=== PATIENT | male | born 1960 | race Caucasian/White ===

== ENCOUNTER → 2016-07-30 | Outpatient (CLI) | payer BC, OTHER | LOC: RAD 06:59 | PROVIDERS: ATTEND Student in an Organized Health Care Education/Training Program | DX: M75.01 Adhesive capsulitis of right shoulder (principal) ==

== ENCOUNTER 2016-08-21 10:51 | Day surgery (SDC) | payer BC ==
[2016-08-14 13:03] LABS: ABSOLUTE BASOPHILS # (AUTO) 0.1 10^3/uL (0.0-0.2); ABSOLUTE EOSINOPHILS # (AUTO) 0.2 10^3/uL (0.0-0.6); ABSOLUTE LYMPHOCYTES (AUTO) 1.7 10^3/uL (0.5-4.7); ABSOLUTE MONOCYTES (AUTO) 0.4 10^3/uL (0.1-1.4); ABSOLUTE NEUT (AUTO) 2.4 10^3/uL (1.7-8.2); BASOPHILS % (AUTO) 1.7 % (0-2); EOSINOPHILS % (AUTO) 3.6 % (0-6); HEMATOCRIT 43.5 % (37.9-51.0); HEMOGLOBIN 14.8 g/dL (13.5-17.0); HGB HCT DIFFERENCE 0.9; MEAN CORPUSCULAR HEMOGLOBIN 31.2 pg (27.0-33.4); MEAN CORPUSCULAR HGB CONC 34.1 g/dL (32.0-36.0); MEAN CORPUSCULAR VOLUME 92 fl (80-97); MONOCYTES % (AUTO) 8.1 % (3-13); RED BLOOD COUNT 4.75 10^6/uL (4.35-5.55); RED CELL DISTRIBUTION WIDTH 14.1 % (11.5-14.0); SEGMENTED NEUTROPHILS % (AUTO) 50.6 % (42-78); WHITE BLOOD COUNT 4.7 10^3/uL (4.0-10.5)
[2016-08-14 13:18] LABS: APPEARANCE,URINE SLIGHTLY-CLOUDY; BILIRUBIN,URINE NEGATIVE (NEGATIVE); CALCIUM OXALATE CRYSTALS,URINE TOO NUMEROUS TO CNT /HPF; GLUCOSE, URINE NEGATIVE (NEGATIVE); KETONES,URINE NEGATIVE (NEGATIVE); LEUKOCYTE ESTERASE,URINE NEGATIVE (NEGATIVE); NITRITE,URINE NEGATIVE (NEGATIVE); PROTEIN,URINE NEGATIVE (NEGATIVE); URINE SPECIFIC GRAVITY 1.026; UROBILINOGEN,URINE NEGATIVE mg/dL (<2.0)
[2016-08-14 13:33] LABS: ANION GAP 9 (5-19); BLOOD UREA NITROGEN 18 mg/dL (7-20); CALCIUM 9.6 mg/dL (8.4-10.2); CARBON DIOXIDE 31 mmol/L (22-30); CHLORIDE 101 mmol/L (98-107); CREATININE RESULT 0.83 mg/dL (0.52-1.25); GLUCOSE 72 mg/dL (75-110); POTASSIUM 4.6 mmol/L (3.6-5.0); SODIUM 141.4 mmol/L (137-145)
--- NOTE | 2016-08-14 13:54 | RADIOLOGY REPORT (SQ) ---
EXAM DESCRIPTION: CHEST PA/LATERAL COMPLETED DATE/TIME: 08/14/2016 1:06 pm REASON FOR STUDY: PRE-OP COMPARISON: Chest films 03/10/2015, 01/12/2014 EXAM PARAMETERS: NUMBER OF VIEWS: two views TECHNIQUE: Digital Frontal and Lateral radiographic views of the chest acquired. RADIATION DOSE: NA LIMITATIONS: none FINDINGS: LUNGS AND PLEURA: No opacities, masses or pneumothorax. No pleural effusion. MEDIASTINUM AND HILAR STRUCTURES: No masses or contour abnormalities. HEART AND VASCULAR STRUCTURES: Heart normal size. No evidence for failure. BONES: No acute findings. HARDWARE: None in the chest. OTHER: No other significant finding. IMPRESSION: NO SIGNIFICANT RADIOGRAPHIC FINDING IN THE CHEST. TECHNICAL DOCUMENTATION: JOB ID: [id number] [employer]- All Rights Reserved
--- NOTE | 2016-08-14 20:33 | EKG REPORT ---
SEVERITY:- ABNORMAL ECG - SINUS RHYTHM RBBB AND LAFB : Confirmed by: Chris Das MD 14-Aug-2016 20:32:23
[~2016-08-21 10:51] MED LIST: BUPIVACAINE HCL 0.5 % INJ/PF 30 ML SDV ONE; CEFAZOLIN 2 GM/D5W RTU 2 GM/50 ML RTUPB IV PRN; EPINEPHRINE INJ/PF 1 MG/1 ML AMPULE ONE; LACTATED RINGERS 1000 ML IV PRN; LIDOCAINE 0.5% INJ-PF (5 MG/ML) 50 ML SDV SUBCUT PRN
[2016-08-21] MEDS ORDERED: FENTANYL CITRATE INJ/PF 250 MCG/5 ML AMPULE ONE ×2 (12:58)
[2016-08-21] MEDS ORDERED: PROPOFOL INJ 200 MG/20 ML VIAL IV ONE (12:59)
[2016-08-21] MEDS ORDERED: ACETAMINOPHEN 100 ML IV ONE (12:59)
[2016-08-21] MEDS ORDERED: MIDAZOLAM 2 MG/2 ML INJ ONE (12:59)
[2016-08-21] MEDS ORDERED: MORPHINE SULFATE 10 MG/ML INJ ONE (12:59)
[2016-08-21] MEDS ORDERED: MORPHINE SULFATE 10 MG/ML INJ IV PRN (14:31)
[2016-08-21] MEDS ORDERED: DIPHENHYDRAMINE HCL 50 MG/ML VIAL IV PRN (14:31)
[2016-08-21] MEDS ORDERED: PROMETHAZINE HCL INJ 25 MG/1 ML VIAL IV PRN ×2 (14:31)
[2016-08-21] MEDS ORDERED: FENTANYL CITRATE INJ/PF 100 MCG/2 ML AMPUL IV PRN ×3 (14:31)
[2016-08-21] MEDS ORDERED: MEPERIDINE HCL/PF INJ 25 MG/1 ML DISP.SYRIN IV PRN (14:31)
[2016-08-21] MEDS ORDERED: OXYCODONE-ACETAMINOPHEN 5-325 MG TABLET PO PRN ×2 (14:31)
[2016-08-21] MEDS ORDERED: SUCCINYLCHOLINE CHLORIDE INJ 200 MG/10 ML VIAL ONE (15:25)
[2016-08-21] MEDS ORDERED: ROCURONIUM BROMIDE INJ 50 MG/5 ML VIAL IV ONE (15:25)
[2016-08-21] MEDS ORDERED: ONDANSETRON HCL INJ/PF 4 MG/2 ML SDV ONE (15:25)
[2016-08-21] MEDS ORDERED: PHENYLEPHRINE HCL INJ/PF 10 MG/1 ML SDV ONE (15:25)
[2016-08-21] MEDS ORDERED: LIDOCAINE 2% INJ-PF (20 MG/ML) 10 ML AMPUL ONE (15:25)
[2016-08-21] MEDS ORDERED: METOCLOPRAMIDE HCL INJ/PF 10 MG/2 ML SDV ONE (15:25)
[2016-08-21] MEDS ORDERED: GLYCOPYRROLATE INJ 0.4 MG/2 ML VIAL ONE (15:25)
[2016-08-21] MEDS ORDERED: NEOSTIGMINE METHYLSULFATE 10 MG/10 ML VIAL ONE (15:25)
[2016-08-21] MEDS: HYDROMORPHONE HCL INJ/PF 2 MG/ML AMPULE ONE ×2 (16:15→17:56)
--- NOTE | 2016-08-21 17:39 | PDOC DISCHARGE SUMMARY ---
Discharge Summary (SDC) - Discharge Final Diagnosis: Right shoulder arthroscopic rotator cuff repair and distal clavicle excision Date of Surgery: 08/21/16 Discharge Date: 08/21/16 Condition: Good Treatment or Instructions: Patient is instructed to follow up in 10-14 days. Patient instructed to remove dressing in 4 days then can shower and apply Band- Aids as needed. Patient to wear sling for comfort but okay to remove for shower and pendulum exercises. Pendulum exercises are instructed to be done 3 times a day ideally with breakfast, lunch, dinners and showers. Patient instructed to call if there is any signs of redness or drainage fevers or chills. Referrals: GREYSON PATEL DO [Primary Care Provider] - Discharge Diet: As Tolerated Respiratory Treatments at Home: Deep Breathing/Coughing Home Care Assistance: None Needed Report the Following to Your Physician Immediately: Shortness of Breath, Increase in Pain, Yellow Skin, Fever over 101 Degrees, Unusual Bleeding, Redness , Swelling, Warmth, Increased Soreness, Drainage-Yellow, Drainage-[place], Drainage -Green, Drainage-Foul Smelling
--- NOTE | 2016-08-21 17:43 | Operative Report ---
Operative Report DATE OF SURGERY: 08/21/16 PREOPERATIVE DIAGNOSIS: Right high-grade rotator cuff tear and AC joint arthropathy POSTOPERATIVE DIAGNOSIS: Same OPERATION: Right shoulder arthroscopic rotator cuff repair and distal clavicle excision SURGEON: JACKIE VILLEDA ANESTHESIA: GA TISSUE REMOVED OR ALTERED: None COMPLICATIONS: None ESTIMATED BLOOD LOSS: 20 mL INTRAOPERATIVE FINDINGS: As above PROCEDURE: IMPLANTS: Arthrex 4.75 bio composite swivel locks 2 DESCRIPTION OF PROCEDURE: Patient was brought to the operating room placed in supine position. After successfully induced and intubated the patient patient was placed in the beachchair position the head and endotracheal tube was secured appropriately. The right shoulder was prepped and draped in a normal surgical fashion. A timeout was done identifying the right shoulder as the correct site. After inflating the glenohumeral joint with sterile saline solution an 11 blade was used to establish the posterior portal. The arthroscope was introduced and return of fluid was seen showing that we successfully penetrated the glenohumeral joint. With the use of spinal needle we're able to sonya the anterior portal and using an 11 blade able to establish anterior portal. A cannula was introduced through the anterior portal. At this point diagnostic scope was done. As seen on the MRI patient had A high- grade rotator cuff tear. The biceps anchor and labrum was intact. Glenohumeral joint was intact. A lateral portal was established 11 blade. 4.0mm shaver was introduced and was used to prepare the tear and the subchondral bone for preparation of anchor placement. Once I was satisfied with the preparation I then redirected my scope into the subacromial space. Formal bursectomy was done. Able to visualize a pair and was able to clean the edges further. A percutaneous incision was then just adjacent to the acromion on the lateral aspect. Through this percutaneous hole the awl was used to prepare the hole for an anchor. [place] was percutaneously sent flushed with the bone just adjacent to the articular margin. Sutures were passed through the anterior portal for proper suture management. With the use of the scorpion and I proceeded to pass the sutures through the rotator cuff tendon with proper suture management was able to pass the strands either through percutaneous hole or the anterior portal. Once I was satisfied with placement of all my sutures I then proceeded to do my arthroscopic knots. At this point the strands were used to do our lateral row. Bicomposite anchor was used and the lateral aspect of the humerus was then cleaned off with a shaver and electrocautery. Once identified once I was replacement I proceeded to use my awl to do my hole. This this point the sutures were adequately tensioned and subluxed for inserted and secured securing and increasing the footprint of the rotator cuff repair. Remaining strands were cut with the arthroscopic cutter. At this point I turned my attention to the AC joint where I was able to delineate the clavicle and acromion. To my anterior portal was able to use the radio frequency ablative to expose the AC joint. Through the anterior portal I was able to and use a 5.5mm bur to do my resection of the distal clavicle. Final pictures were taking showing my repair and my distal clavicle excision. At this point fluid from the shoulder was removed camera and instruments were all removed. I proceeded to close my portal sites with 3-0 nylon. Xeroform 4 x 4 dressing followed by ABDs pads and Medipore tape was applied. Patient was placed in a sling and returned to supine position where he was successfully extubated and taken to PACU in stable condition.
[2016-08-21 19:25] VITALS: BP 144/89
== END 2016-08-21 19:15 | disposition home or self-care (01) ==
LOC: OROUT 10:51
PROVIDERS: ATTEND Orthopaedic Surgery
PROC: 0PB94ZZ Excision of Right Clavicle, Percutaneous Endoscopic Approach (ICD-10-PCS; 2016-08-21)
PROC: 0LM14ZZ Reattachment of Right Shoulder Tendon, Percutaneous Endoscopic Approach (ICD-10-PCS; principal; 2016-08-21 13:00)
DX: M75.101 Unspecified rotator cuff tear or rupture of right shoulder, not specified as traumatic (principal); M19.011 Primary osteoarthritis, right shoulder; M11.20 Other chondrocalcinosis, unspecified site; M25.511 Pain in right shoulder; Z79.899 Other long term (current) drug therapy; Z79.1 Long term (current) use of non-steroidal anti-inflammatories (NSAID); Z79.891 Long term (current) use of opiate analgesic; E78.00 Pure hypercholesterolemia, unspecified; M19.90 Unspecified osteoarthritis, unspecified site; Z87.891 Personal history of nicotine dependence
CPT/HCPCS: 93005; 36415; 85025; 80048; 81001; 71020; 93010; 29827; 29824; C1713; J2250; J3490 ×2; J0171; J3010; J2765; J2270; J1170; J2370; J0330; J2405; J2704; J0690; J0131; 1610; 1630

== ENCOUNTER 2016-08-22 15:27 | Emergency (ER) | payer BC, OTHER ==
[2016-08-22] MEDS ORDERED: LIDOCAINE 2% URO-JET 5 ML KIT MM ONE (17:23)
[2016-08-22 18:00] LABS: APPEARANCE,URINE CLEAR; BILIRUBIN,URINE NEGATIVE (NEGATIVE); GLUCOSE, URINE NEGATIVE (NEGATIVE); KETONES,URINE TRACE mg/dL (NEGATIVE); LEUKOCYTE ESTERASE,URINE NEGATIVE (NEGATIVE); NITRITE,URINE POSITIVE (NEGATIVE); PROTEIN,URINE NEGATIVE (NEGATIVE); URINE SPECIFIC GRAVITY 1.004
[2016-08-22 18:27] LABS: ABSOLUTE MONOCYTES (AUTO) 0.7 10^3/uL (0.1-1.4); ABSOLUTE NEUT (AUTO) 8.6 10^3/uL (1.7-8.2); BASOPHILS % (AUTO) 0.3 % (0-2); EOSINOPHILS % (AUTO) 0.1 % (0-6); HEMATOCRIT 42.9 % (37.9-51.0); HEMOGLOBIN 14.6 g/dL (13.5-17.0); HGB HCT DIFFERENCE 0.9; LYMPHOCYTES % (AUTO) 9.3 % (13-45); MEAN CORPUSCULAR HGB CONC 33.9 g/dL (32.0-36.0); MEAN CORPUSCULAR VOLUME 92 fl (80-97); MONOCYTES % (AUTO) 6.4 % (3-13); RED BLOOD COUNT 4.69 10^6/uL (4.35-5.55); SEGMENTED NEUTROPHILS % (AUTO) 83.9 % (42-78); WHITE BLOOD COUNT 10.2 10^3/uL (4.0-10.5)
--- NOTE | 2016-08-22 18:38 | ER Document Report ---
HPI - HPI Pain Level: 3 Context: Patient is a 56-year-old male status post right rotator cuff repair yesterday August 21, 2016 who presents with urinary urgency and frequency that began this morning. Patient states that he has associated burning but no hematuria, pyuria. Pt states that he feels like he cannot get all of the urine out of his bladder and he has a lot of bladder pressure. He has been urinating small amounts every 1-2minutes since this morning. Pt did take AZO otc with no relief. He also took 2 of his pain pills prior to coming into the ED. Pt states that he will feel warm on occasion as well but denies any fever. Denies any URI, sore throat, cough, sob, dyspnea, cp, palp, syncope, abd pain, n/v/d/c , or rash. His BM's are regular along with a normal intake of fluids/food. - ROS Notes: REVIEW OF SYSTEMS: CONSTITUTIONAL : Denies fever, chills, or sweats. Denies recent illness. EENT: Denies eye, ear, throat, or mouth pain or symptoms. Denies nasal or sinus congestion or discharge. Denies throat, tongue, or mouth swelling or difficulty swallowing. CARDIOVASCULAR: Denies chest pain. Denies palpitations or racing or irregular heart beat. Denies ankle edema. RESPIRATORY: Denies cough, cold, or chest congestion. Denies shortness of breath, difficulty breathing, or wheezing. GASTROINTESTINAL: Denies abdominal pain or distention. Denies nausea, vomiting , or diarrhea. Denies blood in vomitus, stools, or per rectum. Denies black, tarry stools. Denies constipation. + suprapubic pressure. GENITOURINARY: see hpi. MUSCULOSKELETAL: see hpi. SKIN: Denies rash, lesions or sores. HEMATOLOGIC : Denies easy bruising or bleeding. NEUROLOGICAL: Denies confusion or altered mental status. Denies passing out or loss of consciousness. Denies dizziness or lightheadedness. Denies headache. Denies weakness or paralysis or loss of use of either side. Denies problems with gait or speech. Denies sensory loss, numbness, or tingling. ALL OTHER SYSTEMS REVIEWED AND NEGATIVE. Dictation was performed using [employer]ogi voice recognition software - DERM Skin Color: Normal Past Medical History - Social History Smoking Status: Never Smoker Family History: Reviewed & Not Pertinent Patient has suicidal ideation: No Patient has homicidal ideation: No - Past Medical History Cardiac Medical History: Reports: Hx Hypercholesterolemia Denies: Hx Coronary Artery Disease, Hx Heart Attack, Hx Hypertension Pulmonary Medical History: Denies: Hx Asthma, Hx Bronchitis, Hx COPD, Hx Pneumonia Neurological Medical History: Denies: Hx Cerebrovascular Accident, Hx Seizures Renal/ Medical History: Reports: Hx Kidney Stones. Denies: Hx Peritoneal Dialysis Musculoskeltal Medical History: Reports Hx Arthritis - R SHOULDER, R FEMUR, Reports Hx Gout Psychiatric Medical History: Reports: Hx Anxiety, Hx Depression Past Surgical History: Reports: Hx Orthopedic Surgery - Knee and toe surgery, Hx Tonsillectomy - Immunizations Hx Diphtheria, Pertussis, Tetanus Vaccination: Yes Hx Pneumococcal Vaccination: 01/13/14 Vertical Provider Document - CONSTITUTIONAL Notes: PHYSICAL EXAMINATION: GENERAL: Well-appearing, well-nourished and in no acute respiratory distress, but does appear uncomfortable s/p shoulder surgery. LUNGS: Breath sounds clear to auscultation bilaterally and equal. No wheezes rales or rhonchi. HEART: Regular rate and rhythm without murmurs, rubs, gallops. ABDOMEN: Soft, nontender, nondistended abdomen. Able to percuss the bladder just inferior to the umbilicus. No guarding, no rebound. Palpation of the bladder was found to increase urgency sensation described by the patient. No masses appreciated. Normal bowel sounds present. No CVA tenderness bilaterally. Defer JUVENAL to urologist- Pt unwilling to roll to side with shoulder and catheter/bag placement. Extremities: No cyanosis, clubbing, or edema b/l. Peripheral pulses 2+. Capillary refill less than 3 seconds. NEUROLOGICAL: Cranial nerves grossly intact. Normal speech, normal gait. Normal sensory, motor exams PSYCH: Normal mood, normal affect. SKIN: Warm, Dry, normal turgor, no rashes or lesions noted. - INFECTION CONTROL TRAVEL OUTSIDE OF THE [place] IN LAST 30 DAYS: No - RESPIRATORY O2 Sat by Pulse Oximetry: 99 Course - Re-evaluation Re-evalutation: Patient is a 56yo male who presents with urinary retention s/p Rt RC surgical repair yesterday, August 21 2016. Presenting symptoms were urinary urgency and frequency. A dunn was placed which removed 750cc urine from his bladder. Glucose finger stick of 112. His CBC and CMP were unremarkable aside from mild LFT elevation. A U/A did show + nitrates which we will cover with Keflex. UC pending. Pt states that he did have a dunn during the surgery which was removed during recovery. We will be sending him home with a leg bag and recommended consult with Urology and PCM on Wednesday. 08/22/16 18:41 - Vital Signs Vital signs: Temp Pulse Resp BP Pulse Ox 97.5 F 118 H 20 99 08/22/16 15:31 08/22/16 15:31 08/22/16 15:31 08/22/16 15:31 - Laboratory Result Diagrams: 08/22/16 18:12 08/22/16 18:12 Laboratory results interpreted by me: 08/22/16 08/22/16 08/22/16 17:20 17:53 18:12 Seg Neutrophils % 83.9 H Lymphocytes % 9.3 L Absolute Neutrophils 8.6 H POC Glucose 112 H Urine Ketones TRACE H Urine Nitrite POSITIVE H Urine Urobilinogen 2.0 H Discharge - Discharge Clinical Impression: Urinary retention with incomplete bladder emptying UTI (urinary tract infection) Qualifiers: Urinary tract infection type: site unspecified Hematuria presence: without hematuria Qualified Code(s): N39.0 - Urinary tract infection, site not specified Condition: Stable Disposition: HOME, SELF-CARE Instructions: Urinary Anesthetic Agent ([facility]), Urinary Tract Infection ([facility]), Cephalexin ([facility]) Additional Instructions: Maintain fluid intake Take meds as directed Continue direction as per your Orthopedic surgeon for your shoulder Keep catheter placed until consult with Urology F/u: with Urology on Wednesday for recheck F/u: with your PCM on Wednesday-wednesday for recheck If any worsening symptoms (e.g. fever, cp, sob, dyspnea, abdominal pain, blood in urine, Headache) to return to the ED. Prescriptions: Cephalexin Monohydrate [Keflex 500 mg Capsule] 500 mg PO BID #14 capsule
[2016-08-22 18:49] LABS: ALANINE AMINOTRANSFERASE 84 U/L (21-72); ALBUMIN 4.2 g/dL (3.5-5.0); ALKALINE PHOSPHATASE 68 U/L (38-126); ANION GAP 11 (5-19); ASPARTATE AMINO TRANSFERASE 76 U/L (17-59); BILIRUBIN,DIRECT 0.1 mg/dL (0.0-0.4); BILIRUBIN,TOTAL 1.1 mg/dL (0.2-1.3); BLOOD UREA NITROGEN 10 mg/dL (7-20); CALCIUM 9.6 mg/dL (8.4-10.2); CARBON DIOXIDE 29 mmol/L (22-30); CHLORIDE 98 mmol/L (98-107); CREATININE RESULT 0.74 mg/dL (0.52-1.25); GLUCOSE 105 mg/dL (75-110); POTASSIUM 3.6 mmol/L (3.6-5.0); SODIUM 137.6 mmol/L (137-145); TOTAL PROTEIN 7.2 g/dL (6.3-8.2)
[2016-08-22 20:47] VITALS: BP 127/73
== END 2016-08-22 20:55 | disposition home or self-care (01) ==
LOC: ER 15:27
DX: N39.0 Urinary tract infection, site not specified (principal); R33.9 Retention of urine, unspecified; R79.89 Other specified abnormal findings of blood chemistry; Z98.890 Other specified postprocedural states; Z87.442 Personal history of urinary calculi
CPT/HCPCS: 99283; 51701; 51702; 36415; 87086; 82962; 85025; 80053; 81001; J3490

== ENCOUNTER 2016-08-23 15:45 | Emergency (ER) | payer BC ==
--- NOTE | 2016-08-23 17:36 | ER Document Report ---
ED GI/ - General Chief Complaint: Blood in Catheter Stated Complaint: BLEEDING FROM CATHETER/POST SURGERY Time Seen by Provider: 08/23/16 17:23 Mode of Arrival: Ambulatory Information source: Patient TRAVEL OUTSIDE OF THE [place] IN LAST 30 DAYS: No - HPI Patient complains to provider of: Huang catheter problem Onset: This morning Timing/Duration: Sudden Quality of pain: Burning Severity at maximum: Moderate Severity in ED: Moderate Pain Level: 3 Location: Suprapubic Associated symptoms: Hematuria Exacerbated by: Denies Relieved by: Denies Similar symptoms previously: Yes Recently seen / treated by doctor: Yes Notes: 08/23/16 17:30 Angelica is a 56-year-old male who presents to the emergency room complaining of hematuria, he recently had rotator cuff surgery, developed urinary retention afterwards, was seen in this emergency room yesterday and a Huang catheter was placed, which seem to be working quite well until this morning when he noticed blood in the leg bag, and a burning sensation when trying to urinate, he has no history of urinary retention prior to this episode, he does report that he is taking pain medication for the rotator cuff repair, has not been having regular bowel movements but did do two at home enemas with success - Related Data Allergies/Adverse Reactions: No Known Allergies Allergy (Verified 08/23/16 16:27) Past Medical History - General Information source: Patient - Social History Smoking Status: Never Smoker Family History: Reviewed & Not Pertinent Patient has suicidal ideation: No Patient has homicidal ideation: No - Past Medical History Cardiac Medical History: Reports: Hx Hypercholesterolemia Denies: Hx Coronary Artery Disease, Hx Heart Attack, Hx Hypertension Pulmonary Medical History: Denies: Hx Asthma, Hx Bronchitis, Hx COPD, Hx Pneumonia Neurological Medical History: Denies: Hx Cerebrovascular Accident, Hx Seizures Renal/ Medical History: Reports: Hx Kidney Stones. Denies: Hx Peritoneal Dialysis Musculoskeltal Medical History: Reports Hx Arthritis - R SHOULDER, R FEMUR, Reports Hx Gout Psychiatric Medical History: Reports: Hx Anxiety, Hx Depression Past Surgical History: Reports: Hx Orthopedic Surgery - Knee and toe surgery, Hx Tonsillectomy - Immunizations Hx Diphtheria, Pertussis, Tetanus Vaccination: Yes Hx Pneumococcal Vaccination: 01/13/14 Review of Systems - Review of Systems Constitutional: No symptoms reported EENT: No symptoms reported Cardiovascular: No symptoms reported Respiratory: No symptoms reported Gastrointestinal: No symptoms reported Genitourinary: Hematuria Male Genitourinary: No symptoms reported Musculoskeletal: No symptoms reported Skin: No symptoms reported Hematologic/Lymphatic: No symptoms reported Neurological/Psychological: No symptoms reported -: Yes All other systems reviewed and negative Physical Exam - Vital signs Vitals: Temp Pulse Resp BP Pulse Ox 98.2 F 90 18 155/88 H 96 08/23/16 16:28 08/23/16 16:28 08/23/16 16:28 08/23/16 16:28 08/23/16 16:28 - Notes Notes: - General General appearance: Appears well, Alert In distress: None - HEENT Head: Normocephalic, Atraumatic Eyes: Normal Conjunctiva: Normal Extraocular movements intact: Yes Eyelashes: Normal Pupils: PERRL - Respiratory Respiratory status: No respiratory distress - Cardiovascular Rhythm: Regular - Abdominal Inspection: Normal -Genitourinary Catheter in place with leg bag with clear yellow urine, no evidence of hematuria - Back Back: Normal - Extremities General upper extremity: Normal inspection General lower extremity: Normal inspection - Neurological Neuro grossly intact: Yes Orientation: AAOx4 Abran Coma Scale Eye Opening: Spontaneous Abran Coma Scale Verbal: Oriented Cow[place] Coma Scale Motor: Obeys Commands Abran Coma Scale Total: 15 - Psychological Associated symptoms: Normal affect, Normal mood - Skin Skin Temperature: Warm Skin Moisture: Dry Skin Color: Normal Course - Re-evaluation Re-evalutation: 08/23/16 18:10 Patient's bladder was irrigated with 1000 cc of normal saline, and has been clear and without blood, he will be discharged with instructions for follow-up and advised to return if any additional concerns, patient acknowledges understanding and agreement with this plan - Vital Signs Vital signs: Temp Pulse Resp BP Pulse Ox 98.2 F 90 18 155/88 H 96 08/23/16 16:28 08/23/16 16:28 08/23/16 16:28 08/23/16 16:28 08/23/16 16:28 Discharge - Discharge Clinical Impression: Hematuria, Huang catheter in place Condition: Stable Disposition: HOME, SELF-CARE Instructions: Huang Catheter Care ([facility]), Hematuria ([facility]) Additional Instructions: Follow up with your primary care provider in one to 2 days. Return to the emergency room immediately if symptoms worsen or any additional concerns. Prescriptions: Docusate Sodium [Colace 100 mg Capsule] 100 mg PO BID #60 capsule Polyethylene Glycol 3350 [Miralax Powder 17 Gm/Packet] 17 gm PO DAILY #30 powd.pack
[2016-08-23 18:40] VITALS: BP 160/85
== END 2016-08-23 18:36 | disposition home or self-care (01) ==
LOC: ER 15:45
DX: R31.9 Hematuria, unspecified (principal); E78.00 Pure hypercholesterolemia, unspecified; Z87.442 Personal history of urinary calculi
CPT/HCPCS: 99283

== ENCOUNTER 2016-09-04 21:56 | Emergency (ER) | payer BC ==
--- NOTE | 2016-09-04 22:47 | ER Document Report ---
ED General - General Chief Complaint: Urinary Retention Stated Complaint: URINARY ISSUE Time Seen by Provider: 09/04/16 22:21 Mode of Arrival: Ambulatory Information source: Patient, Relative TRAVEL OUTSIDE OF THE [place] IN LAST 30 DAYS: No - HPI Notes: Patient is a pleasant 56-year-old white male presents emergency department with report that he had rotator cuff surgery on 08/21/16 and postoperatively had urinary retention and a Huang catheter was placed, then he returned with mild hematuria which cleared up. He was placed upon Keflex, although a urine culture was negative. The patient had a normal BUN/creatinine of 10/0.74 on 08/22. Patient was seen by urology and had Huang catheter removed 2 days ago when he followed up with urology and since that time he states he has not had adequate ability to urinate that is gotten progressively worse with bladder fullness. He denies any fever, nausea, back pain. Patient was started on Flomax 4 days ago. - Related Data Allergies/Adverse Reactions: No Known Allergies Allergy (Verified 08/23/16 16:27) Past Medical History - General Information source: Patient - Social History Smoking Status: Never Smoker Frequency of alcohol use: None Drug Abuse: None Lives with: Family Family History: Reviewed & Not Pertinent Patient has suicidal ideation: No Patient has homicidal ideation: No - Past Medical History Cardiac Medical History: Reports: Hx Hypercholesterolemia Denies: Hx Coronary Artery Disease, Hx Heart Attack, Hx Hypertension Pulmonary Medical History: Denies: Hx Asthma, Hx Bronchitis, Hx COPD, Hx Pneumonia Neurological Medical History: Denies: Hx Cerebrovascular Accident, Hx Seizures Renal/ Medical History: Reports: Hx Kidney Stones. Denies: Hx Peritoneal Dialysis Musculoskeltal Medical History: Reports Hx Arthritis - R SHOULDER, R FEMUR, Reports Hx Gout Psychiatric Medical History: Reports: Hx Anxiety, Hx Depression Past Surgical History: Reports: Hx Orthopedic Surgery - Knee and toe surgery, Hx Tonsillectomy - Immunizations Hx Diphtheria, Pertussis, Tetanus Vaccination: Yes Hx Pneumococcal Vaccination: 01/13/14 Review of Systems - Review of Systems Notes: REVIEW OF SYSTEMS: CONSTITUTIONAL : Denies fever, chills, or sweats. Denies recent illness. EENT: Denies eye, ear, throat, or mouth pain or symptoms. Denies nasal or sinus congestion or discharge. Denies throat, tongue, or mouth swelling or difficulty swallowing. CARDIOVASCULAR: Denies chest pain. Denies palpitations or racing or irregular heart beat. Denies ankle edema. RESPIRATORY: Denies cough, cold, or chest congestion. Denies shortness of breath, difficulty breathing, or wheezing. GASTROINTESTINAL: Denies nausea, vomiting, or diarrhea. Denies blood in vomitus, stools, or per rectum. Denies black, tarry stools. Patient reported lower abdominal pain that was relieved after Huang catheter placement with removal of 450 cc of clear urine. Patient does report mild constipation, related to being on his narcotic pain meds after surgery. The patient states he is weaning off of these medications currently. GENITOURINARY: Denies blood in urine, or discharge. MUSCULOSKELETAL: Denies back or neck pain or stiffness. Denies joint pain or swelling. SKIN: Denies rash, lesions or sores. HEMATOLOGIC : Denies easy bruising or bleeding. LYMPHATIC: Denies swollen, enlarged glands. NEUROLOGICAL: Denies confusion or altered mental status. Denies passing out or loss of consciousness. Denies dizziness or lightheadedness. Denies headache. Denies weakness or paralysis or loss of use of either side. Denies problems with gait or speech. Denies sensory loss, numbness, or tingling. Denies seizures. PSYCHIATRIC: Denies anxiety or stress. Denies depression, suicidal ideation, or homicidal ideation. ALL OTHER SYSTEMS REVIEWED AND NEGATIVE. Dictation was performed using [employer] voice recognition software Physical Exam - Vital signs Vitals: Temp Pulse Resp BP Pulse Ox 98.5 F 106 H 20 122/64 99 09/04/16 22:07 09/04/16 22:07 09/04/16 22:07 09/04/16 22:07 09/04/16 22:07 - Notes Notes: PHYSICAL EXAMINATION: GENERAL: Well-appearing, well-nourished and in moderate discomfort. HEAD: Atraumatic, normocephalic. EYES: Pupils equal round and reactive to light, extraocular movements intact, sclera anicteric, conjunctiva are normal. ENT: Nares patent, oropharynx clear without exudates. Moist mucous membranes. NECK: Normal range of motion, supple without lymphadenopathy LUNGS: Breath sounds clear to auscultation bilaterally and equal. No wheezes rales or rhonchi. HEART: Regular rate and rhythm without murmurs ABDOMEN: Distended abdomen. No guarding, no rebound. No masses appreciated. After Huang catheter placed, patient was nontender and nondistended and felt much better. Musculoskeletal: Normal range of motion, no pitting or edema. No cyanosis. No CVA tenderness. NEUROLOGICAL: Cranial nerves grossly intact. Normal speech, normal gait. Normal sensory, motor exams PSYCH: Normal mood, normal affect. SKIN: Warm, Dry, normal turgor, no rashes or lesions noted. Course - Re-evaluation Re-evalutation: 09/04/16 22:46 Huang catheter was placed and 450 cc of urine was retrieved. Patient had complete relief of his discomfort after this. 09/05/16 00:21 No obvious evidence for urinary tract infection. Urine cultures obtained. Additional 300 cc of urine was obtained over the course of the next hour and a half. Patient was without complaint of pain on repeat exam. Magnesium citrate was given to the patient. MiraLAX will be written. - Vital Signs Vital signs: Temp Pulse Resp BP Pulse Ox 98.5 F 106 H 20 122/64 99 09/04/16 22:07 09/04/16 22:07 09/04/16 22:07 09/04/16 22:07 09/04/16 22:07 - Laboratory Laboratory results interpreted by me: 09/04/16 22:35 Urine Ketones TRACE H Urine Blood SMALL H Urine Nitrite POSITIVE H Ur Leukocyte Esterase SMALL H Discharge - Discharge Clinical Impression: Urinary retention Constipation Qualifiers: Constipation type: drug induced constipation Qualified Code(s): K59.03 - Drug induced constipation Condition: Stable Disposition: HOME, SELF-CARE Instructions: Urinary Retention ([facility]), Constipation ([facility]) Additional Instructions: Drink plenty of fluids. Take MiraLAX daily as needed to control constipation. Continue to cut back on your pain medications. Follow-up with urologist Dr. Rod next week to arrange removal of the Huang catheter and further evaluation of urinary retention. Continue taking your Flomax. Return to the ED in case of fever, significant blood in urine. Prescriptions: Polyethylene Glycol 3350 [Miralax] 1 cap PO DAILY #527 powder Referrals: CIRLIO PATEL MD [Primary Care Provider] - Follow up as needed
[2016-09-04 23:04] LABS: APPEARANCE,URINE CLEAR; BILIRUBIN,URINE NEGATIVE (NEGATIVE); GLUCOSE, URINE NEGATIVE (NEGATIVE); KETONES,URINE TRACE mg/dL (NEGATIVE); LEUKOCYTE ESTERASE,URINE SMALL (NEGATIVE); NITRITE,URINE POSITIVE (NEGATIVE); PROTEIN,URINE NEGATIVE (NEGATIVE); URINE SPECIFIC GRAVITY 1.005; UROBILINOGEN,URINE NEGATIVE mg/dL (<2.0)
[2016-09-04] MEDS ORDERED: MAGNESIUM CITRATE 296 ML BOTTLE PO ONE (23:04)
[2016-09-05 00:43] VITALS: BP 126/70
== END 2016-09-05 00:43 | disposition home or self-care (01) ==
LOC: ER 21:56
DX: K59.03 Drug induced constipation (principal); R33.9 Retention of urine, unspecified; Z98.890 Other specified postprocedural states; E78.00 Pure hypercholesterolemia, unspecified; Z87.442 Personal history of urinary calculi
CPT/HCPCS: 99283; 51702; 87086; 87088; 81001; 87186; J3490

== ENCOUNTER → 2018-09-20 | Outpatient (CLI) | payer BC ==
--- NOTE | 2018-09-20 14:59 | RADIOLOGY REPORT (SQ) ---
EXAM DESCRIPTION: CT ABD/PELVIS WITH IV ONLY COMPLETED DATE/TIME: 09/20/2018 2:10 pm REASON FOR STUDY: LOWER ABD PAIN (R10.30), PELVIC AND PERINEAL PAIN (R10.2), ABN WEIGHT LOSS R63.4 ABNORMAL WEIGHT LOSS R10.2 PELVIC AND PERINEAL PAIN R10.30 LOWER ABDOMINAL PAIN, UNSPECIFIED COMPARISON: None. TECHNIQUE: CT scan of the abdomen and pelvis performed using helical scanning technique with dynamic intravenous contrast injection. No oral contrast. Images reviewed with lung, soft tissue, and bone windows. Reconstructed coronal and sagittal MPR images reviewed. Delayed images for evaluation of the urinary system also acquired. All images stored on PACS. All CT scanners at this facility use dose modulation, iterative reconstruction, and/or weight based d osing when appropriate to reduce radiation dose to as low as reasonably achievable (ALARA). [facility]: Dose Right [facility]: CareDose [facility]: Dose Right [facility]: Teradose 4D [facility]: Douban CONTRAST TYPE AND DOSE: contrast/concentration: Isovue 350.00 mg/ml; Total Contrast Delivered: 98.0 ml; Total Saline Delivered: 72.0 ml RENAL FUNCTION: GFR > 60. RADIATION DOSE: CT Rad equipment meets quality standard of care and radiation dose reduction techniq ues were employed. CTDIvol: 8.0 - 9.3 mGy. DLP: 862 mGy-cm.. LIMITATIONS: None. FINDINGS: LOWER CHEST: No significant findings. No nodules or infiltrates. LIVER: Normal size. No masses. No dilated ducts. SPLEEN: Normal size. No focal lesions. PANCREAS: No masses. No significant calcifications. No adjacent inflammation or peripancreatic fluid collections. Pancreatic duct not dilated. GALLBLADDER: No identified stones by CT criteria. No inflammatory changes to suggest cholecystitis. ADRENAL GLANDS: No significant masses or asymmetry. RIGHT KIDNEY AND URETER: No solid masses. 1 cm and 1.1 cm cysts, right mid-pole kidney. No signific ant calcifications. No hydronephrosis or hydroureter. LEFT KIDNEY AND URETER: No solid masses. 1.5 cm cyst left mid pole kidney. No significant calcifica tions. No hydronephrosis or hydroureter. AORTA AND VESSELS: No aneurysm. No dissection. Renal arteries, SMA, celiac without stenosis. RETROPERITONEUM: No retroperitoneal adenopathy, hemorrhage or masses. BOWEL AND PERITONEAL CAVITY: No free intraperitoneal air. Trace cul-de-sac pelvic fluid is present. No CT evidence of bowel obstruction. There are descending and sigmoid colon diverticuli without CT signs of acute diverticulitis. APPENDIX: Normal. PELVIS: Trace cul-de-sac pelvic fluid. No pelvic masses or adenopathy. Bladder unremarkable. Post prostatectomy. ABDOMINAL WALL: Just superior to the umbilicus, there is an stranding in the anterior abdominal wall subcutaneous fat along an old incision without recurrent hernia. BONES: No significant or acute findings. OTHER: No other significant finding. IMPRESSION: Descending and sigmoid colon diverticuli without definite CT signs of acute diverticulit is. Trace pelvic cul-de-sac fluid, nonspecific. TECHNICAL DOCUMENTATION: JOB ID: [id number] Quality ID # [id number]: Final reports with documentation of one or more dose reduction techniques (e.g., Au tomated exposure control, adjustment of the mA and/or kV according to patient size, use of iterative reconstruction technique) 2010 [employer]- All Rights Reserved Reading location - IP/workstation name: [email or web address]
== END ==
LOC: RAD 13:29
PROVIDERS: ATTEND Physician Assistant
DX: K57.30 Diverticulosis of large intestine without perforation or abscess without bleeding (principal); R10.30 Lower abdominal pain, unspecified; R10.2 Pelvic and perineal pain; R63.4 Abnormal weight loss
CPT/HCPCS: 74177; 82565

== ENCOUNTER 2018-12-30 06:35 | Day surgery (SDC) | payer BC ==
[2018-12-23 10:06] LABS: HEMATOCRIT 42.7 % (37.9-51.0); HEMOGLOBIN 14.5 g/dL (13.5-17.0); MEAN CORPUSCULAR HEMOGLOBIN 30.6 pg (27.0-33.4); MEAN CORPUSCULAR HGB CONC 34.1 g/dL (32.0-36.0); MEAN CORPUSCULAR VOLUME 90 fl (80-97); PLATELET COUNT 197 10^3/uL (150-450); RED BLOOD COUNT 4.75 10^6/uL (4.35-5.55)
--- NOTE | 2018-12-23 10:12 | RADIOLOGY REPORT (SQ) ---
Forced EXAM DESCRIPTION: CHEST PA/LATERAL COMPLETED DATE/TIME: 12/23/2018 9:47 am REASON FOR STUDY: PRE-OP COMPARISON: 07/07/2018 EXAM PARAMETERS: NUMBER OF VIEWS: two views TECHNIQUE: Digital Frontal and Lateral radiographic views of the chest acquired. RADIATION DOSE: NA LIMITATIONS: none FINDINGS: LUNGS AND PLEURA: No opacities, masses or pneumothorax. No pleural effusion. MEDIASTINUM AND HILAR STRUCTURES: No masses or contour abnormalities. HEART AND VASCULAR STRUCTURES: Heart normal size. No evidence for failure. BONES: No acute findings. HARDWARE: None in the chest. OTHER: No other significant finding. IMPRESSION: NO SIGNIFICANT RADIOGRAPHIC FINDING IN THE CHEST. TECHNICAL DOCUMENTATION: JOB ID: [id number] [employer]- All Rights Reserved Reading location - IP/workstation name: [email or web address]
[2018-12-23 10:27] LABS: ANION GAP 7 (5-19); BLOOD UREA NITROGEN 14 mg/dL (7-20); CALCIUM 9.8 mg/dL (8.4-10.2); CARBON DIOXIDE 32 mmol/L (22-30); CHLORIDE 101 mmol/L (98-107); GLUCOSE 109 mg/dL (75-110); POTASSIUM 4.4 mmol/L (3.6-5.0)
--- NOTE | 2018-12-23 23:19 | EKG REPORT ---
SEVERITY:- ABNORMAL ECG - SINUS RHYTHM RBBB AND LAFB : Confirmed by: Carlota Johnson MD 23-Dec-2018 23:18:06
[~2018-12-30 06:35] MED LIST changes: +ACETAMINOPHEN 325 MG TABLET PO PRN; -BUPIVACAINE HCL 0.5 % INJ/PF 30 ML SDV ONE; -CEFAZOLIN 2 GM/D5W RTU 2 GM/50 ML RTUPB IV PRN; +CEFAZOLIN SODIUM 2 GM in DEXTROSE 5%-WATER 100 ML IV PRN; +DEXAMETHASONE SOD PHOSPHATE INJ 4 MG/1 ML VIAL ONE; -EPINEPHRINE INJ/PF 1 MG/1 ML AMPULE ONE; +FENTANYL CITRATE INJ/PF 100 MCG/2 ML AMPUL ONE; +FENTANYL CITRATE INJ/PF 250 MCG/5 ML AMPULE ONE; +IBUPROFEN 800 MG in NORMAL SALINE 250 ML IV PRN; +MIDAZOLAM 2 MG/2 ML INJ ONE; +ONDANSETRON HCL INJ/PF 4 MG/2 ML SDV ONE; +PREGABALIN 50 MG CAPSULE PO PRN; +PROPOFOL INJ 200 MG/20 ML VIAL IV ONE; +ROCURONIUM BROMIDE INJ 50 MG/5 ML VIAL IV ONE; +SUCCINYLCHOLINE CHLORIDE INJ 200 MG/10 ML VIAL ONE; +SUGAMMADEX SODIUM 200 MG/2 ML SDV IV ONE
[2018-12-30] MEDS ORDERED: ACETAMINOPHEN 325 MG TABLET ONE (07:00)
[2018-12-30] MEDS ORDERED: PREGABALIN 50 MG CAPSULE ONE (07:01)
[2018-12-30] MEDS ORDERED: BUPIVACAINE HCL 0.25 % INJ/PF (2.5 MG/1 ML) 30 ML VIAL ONE (07:33)
[2018-12-30] MEDS ORDERED: BUPIVACAINE HCL 0.25 % INJ/PF (2.5 MG/1 ML) 30 ML VIAL INJ ONE (08:58)
[2018-12-30] MEDS ORDERED: RINGERS SOLUTION,LACTATED 1,000 ML IV PRN (09:09)
[2018-12-30] MEDS: FENTANYL CITRATE INJ/PF 100 MCG/2 ML AMPUL ONE ×2 (10:20→10:30)
[2018-12-30] MEDS ORDERED: ACETAMINOPHEN 1,000 MG/100 ML RTUPB IV ONE (10:31)
[2018-12-30] MEDS: HYDROMORPHONE HCL INJ/PF 2 MG/ML AMPULE ONE ×2 (10:35→10:45)
[2018-12-30] MEDS ORDERED: HYDROCODONE/ACETAMINOPHEN 10-325 MG TABLET PO PRN (10:54)
[2018-12-30] MEDS ORDERED: FENTANYL CITRATE INJ/PF 100 MCG/2 ML AMPUL IV PRN ×3 (10:57)
[2018-12-30] MEDS ORDERED: MEPERIDINE HCL/PF INJ 25 MG/1 ML DISP.SYRIN IV PRN (10:57)
[2018-12-30] MEDS ORDERED: DIPHENHYDRAMINE HCL 50 MG/ML VIAL IV PRN (10:57)
[2018-12-30] MEDS ORDERED: MORPHINE SULFATE 10 MG/ML INJ IV PRN (10:57)
[2018-12-30] MEDS ORDERED: ONDANSETRON HCL INJ/PF 4 MG/2 ML SDV IV PRN (10:57)
[2018-12-30] MEDS ORDERED: PROMETHAZINE HCL INJ 25 MG/1 ML VIAL IV PRN ×2 (10:57)
[2018-12-30] MEDS ORDERED: HYDROCODONE/ACETAMINOPHEN 10-325 MG TABLET ONE (11:28)
[2018-12-30 12:43] VITALS: BP 136/91
[2018-12-30] MEDS ORDERED: IBUPROFEN 800 MG TABLET PO SCH (14:00)
--- NOTE | 2019-01-02 10:03 | Discharge Summary ---
Discharge Summary (SDC) - Discharge Final Diagnosis: Ventral incisional hernia Date of Surgery: 12/30/18 Discharge Date: 12/30/18 Condition: Good Forms: ASU Anesthesia D/C Instruction, Discharge POC-Surgical Service Treatment or Instructions: NONSTRENUOUS ACTIVITY NO DRIVING TODAY OR WHILE TAKING YOUR PAIN MEDICATION FOLLOW UP DIRECTED DIET TOLERATED Referrals: FRANKO PEREZ MD [ACTIVE STAFF] - Discharge Diet: As Tolerated Respiratory Treatments at Home: Deep Breathing/Coughing, Incentive Spirometer Discharge Activity: Balance Activity w/Rest, No Driving, No Lifting Over 10 Pounds, No Lifting/Push/Pulling, No tub bath Home Care Assistance: None Needed Report the Following to Your Physician Immediately: Shortness of Breath, Nausea, Vomiting, Increase in Pain, Fever over 101 Degrees, Unusual Bleeding, Redness, Swelling, Warmth, Increased Soreness, Drainage-Yellow, Drainage-Mantilla, Drainage- Green, Drainage-Foul Smelling, Large Clots, Numbness, Tingling Sensation, Wheezing, Seizure, IV Site Infection Signs
--- NOTE | 2019-01-02 10:08 | Operative Report ---
Nonrecallable Operative Report DATE OF SURGERY: 12/30/18 PREOPERATIVE DIAGNOSIS: Ventral incisional hernia, symptomatic POSTOPERATIVE DIAGNOSIS: Same as above OPERATION: Robot-assisted laparoscopic ventral incisional hernia repair with mesh. SURGEON: FRANKO PEREZ 1ST DELINQUENT NOTICE MACHINE OPERATOR: GRACIELA VAIL ANESTHESIA: GA TISSUE REMOVED OR ALTERED: None COMPLICATIONS: None apparent ESTIMATED BLOOD LOSS: Minimal PROCEDURE: Drains/implants: 10 x [address] hernia mesh. Procedure in detail: After informed consent was obtained, the patient was brought into the operating room and laid in the supine position. The area of the abdomen was prepped and draped in a normal sterile fashion. An incision was created in the left upper quadrant with a 15 blade scalpel. The 5 mm trocar and camera were then inserted into the abdominal cavity under direct laparoscopic visualization, using the Optiview technique. Once the abdomen was accessed, gas insufflation was attached, and pneumoperitoneum was achieved. A left lower quadrant 8 mm robotic trocar was placed, as well as a 12 mm balloon trocar was placed under direct laparoscopic visualization. The 5 mm trocar was then removed, and replaced with an 8 mm robotic trocar. This was also done under direct laparoscopic visualization. The robot was then brought over the patient and docked appropriately. The hernia defect was visualized. The hernia defect was then closed using #1 V Lock Suture in simple running fashion. Once this was completed, a 10 x [address] hernia mesh was chosen to adequately cover the defect. It was placed into the abdominal cavity and apposed to the anterior abdominal wall using the EPS. Once this was completed, the mesh was sutured to the anterior abdominal wall using nonabsorbable 2-0 V Lock Suture. The mesh was sutured circumferentially, and down the center. Once this was completed the mesh was inspected. It was found to lie in very good position. At this time the robot was undocked, and I scrubbed back into the case. The 8 mm trocar sites were closed using 0 Vicryl suture in simple interrupted fashion with the aid of the Dominick-Sandoval device. The 12 mm balloon trocar site was closed under direct vision with 0 Vicryl suture in [id number] fashion. The overlying skin was closed using 4-0 Vicryl Rapide suture in subcuticular fashion. Dressings were placed, and the procedure was concluded. All sponge, instrument, needle counts were correct x2. Condition: Stable. Graciela Vail PA-C was scrubbed and present the entirety the procedure. She assisted with all portions of the procedure including placement of the trochars, docking of the robot, exchanging of the robotic instruments, insertion of the mesh, closure of the fascia, and closure of the skin.
== END 2018-12-30 12:30 | disposition home or self-care (01) ==
LOC: OROUT 06:35
PROVIDERS: ATTEND Surgery
DX: K43.9 Ventral hernia without obstruction or gangrene (principal); G47.30 Sleep apnea, unspecified; I49.9 Cardiac arrhythmia, unspecified; Z85.6 Personal history of leukemia; Z87.891 Personal history of nicotine dependence; Z79.899 Other long term (current) drug therapy; Z79.82 Long term (current) use of aspirin
CPT/HCPCS: 49654; S2900; 36415; 71046; 790; 80048; 85027; 93005; 93010; J0131; J0330; J0690; J1100; J1170; J1741; J2250; J2405; J2704; J3010; J3490; J7050; J7060